=== PATIENT | female | born 1935 | race Two or more races ===

== ENCOUNTER 2023-01-18 09:21 | Emergency (ER) | payer OTHER ==
[~2023-01-18] VITALS: Ht 160 cm; Wt 65.8 kg
[2023-01-18] MEDS ORDERED: MULTI VITAMIN1 EACH (10:26)
[2023-01-18] MEDS ORDERED: ATORVASTATIN CA10 MG (10:26)
[2023-01-18] MEDS ORDERED: CITALOPRAM20 MG/10 M (10:27)
[2023-01-18] MEDS ORDERED: BAYER THERAPY325 MG (10:27)
[2023-01-18] MEDS ORDERED: COZAAR50 MG (10:28)
[2023-01-18] MEDS ORDERED: AZOR 5-20 MG T1 EACH (10:28)
[2023-01-18] MEDS ORDERED: CARVEDILOL ER40 MG (10:28)
[2023-01-18 11:32] LABS: PH,URINE 6.5 (5.0-8.0); URINE APPEARANCE Clear; URINE BILIRRUBIN Negative (NEGATIVE); URINE BLOOD Negative; URINE COLOR Yellow; URINE GLUCOSE Negative (NEGATIVE); URINE LEUKOCYTE Moderate; URINE NITRATE Negative; URINE PROTEIN Negative (NEGATIVE); URINE UROBILINOGEN 0.2 E.U./dl
[2023-01-18 11:33] LABS: HEMATOCRIT 34.4 % (36.0-45.00); HEMOGLOBIN 11.9 g/dL (12.0-15.00); MEAN CELL VOLUME 89.2 fL (80.00-100.00); MEAN CORPUSCULAR HEMOGLOBIN 30.9 pg (27.00-32.0); MEAN CORPUSCULAR HGB CONC 34.7 g/dl (32.0-36.0); PLATELET COUNT 192 K/uL (150-450); RED BLOOD COUNT 3.85 M/uL (4.00-6.00); RED CELL DISTRIBUTION WIDTH 13.9 % (11.5-14.5)
[2023-01-18 11:36] LABS: URINE BACTERIA 558.1 uL (0.0-1933); URINE EPITHELIAL CELLS 13.7 uL (0.0-38.8)
[2023-01-18 11:51] LABS: URINE RBC 1.4 uL (0.0-20.8)
[2023-01-18 11:52] LABS: PARTIAL THROMBOPLASTIN TIME 29.4 SECONDS (22.0-34.0); PROTHROMBIN TIME 10.5 SECONDS (9.0-11.5)
[2023-01-18 12:35] LABS: ALBUMIN 3.7 gm/dL (3.4-5.0); BILIRUBIN TOTAL 0.86 mg/dL (0.3-1.2); CALCIUM 8.9 mg/dL (8.5-10.1); CREATININE SERUM 0.76 mg/dL (0.55-1.02); GFR 72.16; GLOBULINA 3.4 G/DL (2.4-3.5); POTASSIUM 4.27 mEq/L (3.5-5.1); TOTAL PROTEIN 7.1 gm/dL (6.4-8.2)
[2023-01-18 12:58] LABS: TSH 4.19 uIU/mL (0.358-3.74)
== END 2023-01-18 13:34 | disposition home or self-care (01) ==
LOC: ER 09:21
PROVIDERS: General Practice
DX: R07.89 Other chest pain (principal); I10 Essential (primary) hypertension